=== PATIENT | female | born 1995 | race Caucasian/White ===

== ENCOUNTER 2017-09-11 09:04 | Emergency (ER) | payer OTHER ==
[2017-09-11] MEDS ORDERED: LORAZEPAM 1 MG TABLET ONE (10:02)
[2017-09-11] MEDS ORDERED: NA CHLORIDE 0.9% 0 ML ONE (10:02)
[2017-09-11 11:19] LABS: Absolute Lymphocytes (CBC) 1.9 K/uL (0.7-4.9); Absolute Monocytes 0.5 K/uL (0.1-1.3); Absolute Neutrophil 5.4 K/uL (1.8-8.0); Hematocrit 40.9 % (36.0-45.0); Lymphocytes % 23.9 % (15.3-44.8); MCH 28.4 pg (27.0-35.0); MCV 85.9 fL (80-100); MPV 7.5 fL (7.6-11.3); RBC Red Blood Cell Count 4.76 M/uL (3.86-4.86)
[2017-09-11 11:32] LABS: Bicarbonate 24 mEq/L (21-31); Glucose Level 86 mg/dL (65-120); Potassium 4.4 mEq/L (3.6-5.0); Sodium Level 135 mEq/L (135-145)
[2017-09-11 11:33] LABS: BUN Blood Urea Nitrogen 13 mg/dL (6-20)
--- NOTE | 2017-09-11 12:27 | ER ---
Nurse's Notes [facility] Name: Eden Meehan Age: 22 yrs Sex: Female : 1995 Arrival Date: 09/11/2017 Time: 09:11 Bed 19 Private MD: out of town, doctor Diagnosis: Palpitations;Shortness of breath Presentation: 09/11 09:40 Presenting complaint: Patient states: was recently started on Buspirone 7.5 BID on iw 09-08-17, started feeling palpitations and dizziness, chest tightness, was told by her psychiatrist to stop Buspirone, pt states she stopped yesterday but had another episode last night and wanted to make sure everything was ok. Transition of care: patient was not received from another setting of care. 09:40 Method Of Arrival: Ambulatory iw 09:40 Acuity: LOS 4 iw 10:41 Onset: The symptoms/episode began/occurred 1 week(s) ago. Anaphylaxis evaluation, no em signs or symptoms of anaphylaxis were noted. Onset of symptoms was September 04, 2017. Risk Assessment: Do you want to hurt yourself or someone else? Patient reports no desire to harm self or others. Initial Sepsis Screen: Does the patient meet any 2 criteria? No. Patient's initial sepsis screen is negative. Does the patient have a suspected source of infection? No. Patient's initial sepsis screen is negative. Care prior to arrival: None. 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 - Social history:: Smoking status: Patient/guardian denies using tobacco. - Ebola Screening: : Patient negative for fever greater than or equal to 101.5 degrees Fahrenheit, and additional compatible Ebola Virus Disease symptoms Patient denies exposure to infectious person Patient denies travel to an Ebola-affected area in the 21 days before illness onset No symptoms or risks identified at this time. Screenin:42 Abuse screen: Denies threats or abuse. Nutritional screening: No deficits noted. em Tuberculosis screening: No symptoms or risk factors identified. Fall Risk None identified. Assessment: 09:50 General: Appears in no apparent distress. uncomfortable, Behavior is cooperative, em anxious, Reports having started new medication that has made her feel SOB with palpitations, denies chest pain. Pain: Denies pain. Neuro: Level of Consciousness is awake, alert, obeys commands, Oriented to person, place, time, situation. Cardiovascular: Capillary refill < 3 seconds Patient's skin is warm and dry. Respiratory: Airway is patent Respiratory effort is even, unlabored, Breath sounds are clear bilaterally. Denies cough, pain with respiration. GI: Abdomen is round non-distended. : No signs and/or symptoms were reported regarding the genitourinary system. EENT: No signs and/or symptoms were reported regarding the EENT system. Derm: Skin is intact, Skin is pink, warm \T\ dry. Musculoskeletal: Range of motion: intact in all extremities. 11:00 Reassessment: Patient appears in no apparent distress at this time. Patient and/or em family updated on plan of care and expected duration. Pain level reassessed. Patient is alert, oriented x 3, equal unlabored respirations, skin warm/dry/pink. unsuccessful IV sticks, lab called. 12:00 Reassessment: Patient appears in no apparent distress at this time. Patient and/or em family updated on plan of care and expected duration. Pain level reassessed. Patient is alert, oriented x 3, equal unlabored respirations, skin warm/dry/pink. Patient states feeling better. Vital Signs: 09:47 BP 105 / 72; Pulse 101; Resp 18 S; Temp 98.2(TE); Pulse Ox 99% on R/A; Weight 111.13 iw kg; Height 5 ft. 6 in. (167.64 cm); Pain 0/10; 10:37 BP 126 / 81; Pulse 98; Resp 16; Pulse Ox 98% on R/A; Pain 0/10; em 11:30 BP 120 / 70; Pulse 87; Resp 16; Pulse Ox 100% on R/A; em 12:30 BP 111 / 57; Pulse 93; Resp 16; Pulse Ox 99% on R/A; Pain 0/10; em 09:47 Body Mass Index 39.54 (111.13 kg, 167.64 cm) iw ED Course: 09:11 Patient arrived in ED. mr 09:11 out of town, doctor is Private Physician. mr 09:34 [facility] snw 09:34 Franc Thakur MD is Attending Physician. snw 09:41 Keaton Dumont LVN is Primary Nurse. em 10:40 Patient has correct armband on for positive identification. Bed in low position. Call em light in reach. Side rails up X 1. 11:00 Missed attempt(s): 22 gauge in left antecubital area. Bleeding controlled, band aid em applied, catheter tip intact. 11:22 Arm band placed on. em 11:41 Triage completed. iw 12:50 No provider procedures requiring assistance completed. em 12:51 Patient did not have IV access during this emergency room visit. em Administered Medications: 10:10 Drug: Ativan 1 mg Route: PO; em 12:30 Follow up: Response: No adverse reaction; Marked relief of symptoms em 11:40 Not Given (Physician Discretion): NS 0.9% 1000 ml IV at 1 bolus Per protocol; 1000 mL iw bolus Outcome: 12:27 Discharge ordered by . snw 12:54 Patient left the ED. em Signatures: Rocío Shields FNP-C FNP-Hilda Manuel mr DumontKeaton, CHIEF METEOROLOGIST CHIEF METEOROLOGIST em Debo Sánchez, RN RN iw
--- NOTE | 2017-09-11 12:27 | EDPHYS ---
Physician Documentation [facility] Name: Eden Meehan Age: 22 yrs Sex: Female : 1995 Arrival Date: 09/11/2017 Time: 09:11 Bed 19 Private MD: out of town, doctor ED Physician Franc Thakur HPI: 09/11 09:51 This 22 yrs old Female presents to ER via Ambulatory with complaints of snw Palpitations, Dizziness. 09:51 The patient presents with chest pain, shortness of breath. Onset: The symptoms/episode snw began/occurred suddenly, last night. Associated signs and symptoms: Pertinent positives: The patient has no apparent associated signs or symptoms. Possible causes: buspar. The patient presents with a history of heart racing. 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 - Social history:: Smoking status: Patient/guardian denies using tobacco. - Ebola Screening: : Patient negative for fever greater than or equal to 101.5 degrees Fahrenheit, and additional compatible Ebola Virus Disease symptoms Patient denies exposure to infectious person Patient denies travel to an Ebola-affected area in the 21 days before illness onset No symptoms or risks identified at this time. ROS: 09:49 Constitutional: Negative for fever, chills, and weight loss, Eyes: Negative for injury, snw pain, redness, and discharge, ENT: Negative for injury, pain, and discharge, Neck: Negative for injury, pain, and swelling, Respiratory: Negative for shortness of breath, cough, wheezing, and pleuritic chest pain, Abdomen/GI: Negative for abdominal pain, nausea, vomiting, diarrhea, and constipation, Back: Negative for injury and pain, : Negative for injury, bleeding, discharge, and swelling, MS/Extremity: Negative for injury and deformity, Skin: Negative for injury, rash, and discoloration, Neuro: Negative for headache, weakness, numbness, tingling, and seizure. 09:49 Respiratory: Negative for shortness of breath, cough, wheezing, and pleuritic chest pain, feels like something is in her chest 09:49 Cardiovascular: Positive for chest pain. Exam: 09:49 Constitutional: This is a well developed, well nourished patient who is awake, alert, snw and in no acute distress. Head/Face: Normocephalic, atraumatic. Eyes: Pupils equal round and reactive to light, extra-ocular motions intact. Lids and lashes normal. Conjunctiva and sclera are non-icteric and not injected. Cornea within normal limits. Periorbital areas with no swelling, redness, or edema. ENT: Nares patent. No nasal discharge, no septal abnormalities noted. Tympanic membranes are normal and external auditory canals are clear. Oropharynx with no redness, swelling, or masses, exudates, or evidence of obstruction, uvula midline. Mucous membranes moist. Neck: Trachea midline, no thyromegaly or masses palpated, and no cervical lymphadenopathy. Supple, full range of motion without nuchal rigidity, or vertebral point tenderness. No Meningismus. Chest/axilla: Normal chest wall appearance and motion. Nontender with no deformity. No lesions are appreciated. 09:49 Abdomen/GI: Soft, non-tender, with normal bowel sounds. No distension or tympany. No guarding or rebound. No evidence of tenderness throughout. Back: No spinal tenderness. No costovertebral tenderness. Full range of motion. Skin: Warm, dry with normal turgor. Normal color with no rashes, no lesions, and no evidence of cellulitis. MS/ Extremity: Pulses equal, no cyanosis. Neurovascular intact. Full, normal range of motion. Neuro: Awake and alert, GCS 15, oriented to person, place, time, and situation. Cranial nerves II-XII grossly intact. Motor strength 5/5 in all extremities. Sensory grossly intact. Cerebellar exam normal. Normal gait. 09:49 Cardiovascular: Rate: tachycardic, Rhythm: regular, Heart sounds: normal. 09:49 Respiratory: the patient does not display signs of respiratory distress, Respirations: shallow respirations, that is mild, Breath sounds: are clear throughout. 09:49 Psych: Behavior/mood is anxious, mild. Vital Signs: 09:47 BP 105 / 72; Pulse 101; Resp 18 S; Temp 98.2(TE); Pulse Ox 99% on R/A; Weight 111.13 iw kg; Height 5 ft. 6 in. (167.64 cm); Pain 0/10; 10:37 BP 126 / 81; Pulse 98; Resp 16; Pulse Ox 98% on R/A; Pain 0/10; em 11:30 BP 120 / 70; Pulse 87; Resp 16; Pulse Ox 100% on R/A; em 12:30 BP 111 / 57; Pulse 93; Resp 16; Pulse Ox 99% on R/A; Pain 0/10; em 09:47 Body Mass Index 39.54 (111.13 kg, 167.64 cm) iw MDM: 09:35 Patient medically screened. snw 12:58 Data reviewed: vital signs, nurses notes. Data interpreted: Pulse oximetry: on room air snw is 99 %. Interpretation: normal. Counseling: I had a detailed discussion with the patient and/or guardian regarding: the historical points, exam findings, and any diagnostic results supporting the discharge/admit diagnosis, lab results, the need for outpatient follow up, to return to the emergency department if symptoms worsen or persist or if there are any questions or concerns that arise at home. Special discussion: Based on the patient's history, exam, and Dx evaluation, there is no indication for emergent intervention or inpatient Tx. It is understood by the patient/guardian that if the Sx's persist or worsen they need to return immediately for re-evaluation. Based on the history and exam findings, there is no indication for further emergent testing or inpatient evaluation. I discussed with the patient/guardian the need to see the primary care provider for further evaluation of the symptoms. I discussed with the patient/guardian the need to see the psychiatrist for further evaluation of the symptoms. 09/11 09:45 Order name: CBC with Diff snw 09/11 09:45 Order name: Chem 7 snw 09/11 09:45 Order name: DD snw 09/11 09:46 Order name: CBC with Automated Diff; Complete Time: 11:42 EDMS 09/11 09:46 Order name: Basic Metabolic Panel; Complete Time: 11:42 EDMS 09/11 09:46 Order name: D-Dimer; Complete Time: 12:09 EDMS Administered Medications: 10:10 Drug: Ativan 1 mg Route: PO; em 12:30 Follow up: Response: No adverse reaction; Marked relief of symptoms em 11:40 Not Given (Physician Discretion): NS 0.9% 1000 ml IV at 1 bolus Per protocol; 1000 mL iw bolus Disposition: 16:15 Co-signature as Attending Physician, Franc Thakur MD I agree with the assessment and kdr plan of care. Disposition: 09/11/17 12:27 Discharged to Home. Impression: Palpitations, Shortness of breath. - Condition is Stable. - Discharge Instructions: Allergies, Nonspecific Chest Pain, Drug Allergy, Palpitations. - Prescriptions for Benadryl 25 mg Oral Capsule - take 1 capsule by ORAL route every 6 hours As needed; 30 tablet. Pepcid 20 mg Oral Tablet - take 1 tablet by ORAL route once daily; 20 tablet. - Medication Reconciliation Form, Thank You Letter, Antibiotic Education, Prescription Opioid Use form. - Follow up: Private Physician; When: 2 - 3 days; Reason: Recheck today's complaints, Continuance of care, Re-evaluation by your physician. Follow up: Emergency Department; When: As needed; Reason: Trouble breathing, Worsening of condition. Signatures: Dispatcher [employer] [facility] Franc Thakur MD MD [facility] Rocío Shields, SQL REPORT WRITER-C SQL REPORT WRITER-[place] Keaton Dumont, FOLDED CLOTH TAPER FOLDED CLOTH TAPER em Debo Sánchez RN RN iw Corrections: (The following items were deleted from the chart) 12:54 12:27 09/11/2017 12:27 Discharged to Home. Impression: Palpitations; Shortness of em breath. Condition is Stable. Forms are Medication Reconciliation Form, Thank You Letter, Antibiotic Education, Prescription Opioid Use. Follow up: Private Physician; When: 2 - 3 days; Reason: Recheck today's complaints, Continuance of care, Re-evaluation by your physician. Follow up: Emergency Department; When: As needed; Reason: Trouble breathing, Worsening of condition. snw
== END 2017-09-11 12:54 | disposition home or self-care (01) ==
LOC: ER 09:04
DX: R06.02 Shortness of breath (principal); F41.9 Anxiety disorder, unspecified; F32.9 Major depressive disorder, single episode, unspecified
CPT/HCPCS: 36415; 80048; 85025; 85379; 99283; J7030

== ENCOUNTER 2017-09-11 16:36 | Emergency (ER) | payer OTHER ==
--- OUTSIDE RECORDS SUMMARY | 2017-09-11 16:38 | XMS REPORT | Summary of Care ---
:1995 Author Name KAMI STOUT M.D. Address Unavailable Unavailable , Care Team Providers Name Role Phone KAMI STOUT M.D. Unavailable Unavailable Unavailable Unavailable Unavailable Functional Status Name Dates Details Functional status health issues are not documented Status: Name Dates Details Cognitive status health issues are not documented Status: Problems Name Dates Details Complete tear of left rotator cuff (727.61, M75.122) Status: Active Medications Name Dates Details LORazepam 1 MG Oral Tablet Refills: 0 Active BuPROPion HCl ER (SR) 150 MG Oral Tablet Extended Release 12 Hour Refills: 0 Active Naproxen 500 MG Oral Tablet Refills: 0 Active Blisovi Fe 1.5/30 TABS Refills: 0 Active Allergies and Adverse Reactions Name Dates Details No Known Drug Allergies (Allergy) Status: Active Past Medical History Name Dates Details History of Depression (311, F32.9) Status: Resolved Procedures Procedure Dates Details History Of Prior Surgery Completed Immunization Name Dates Details Immunizations not documented Family History Name Dates Details Family history of High blood pressure (401.9, I10) Status: Active Social History Name Dates Details - Status: Name Dates Details Never smoker Vital Signs Date Test Result Details [id number] Height 67 in Status: Weight 248 lb Status: Body Mass Index Calculated 38.84 kg/m2 Status: Body Surface Area Calculated 2.22 m2 Status: Results Date Description Value Details Results not documented Plan of Care Name Dates Details Planned Observations Planned Goals not documented Planned Encounters Appointment; KAMI STOUT M.D. On: 17-Sep-2017 14:10 Interventions Provided Follow-ups/ReferralsPhysical Therapy Referral Ortho; Done: 13 Aug 2017Medications/Immunizations AdministeredMethylPREDNISolone Acetate 40 MG/ML Injection SuspensionPlanCompleted at Today's Appointment: Injection Patient Education/Instructions: Patient Education Provided Reassurance MRI report reviewed and finding discussed with patient and family. Patient/Parent to call or return with any abnormal changes Orders: Physical Therapy Follow Up: Return to the clinic in 6 weeks or as needed. Instructions Name Dates Details Instructions not documented Encounters Appointment; KAMI STOUT M.D. On: 13-Aug-2017 14:00 Encounter Diagnosis: Problem not documented
[2017-09-11] MEDS ORDERED: HYDRALAZINE HCL 10 MG TABLET ONE (18:54)
[2017-09-11] MEDS ORDERED: hydrOXYzine HCl 25 MG TAB ONE (19:46)
--- NOTE | 2017-09-11 20:26 | EDPHYS ---
Physician Documentation [facility] Name: Eden Meehan Age: 22 yrs Sex: Female : 1995 Arrival Date: 09/11/2017 Time: 16:39 Bed 25 Private MD: out of town, doctor ED Physician Christian Young HPI: 09/11 19:00 This 22 yrs old Female presents to ER via Ambulatory with complaints of pm1 Breathing Difficulty. 19:00 The patient has shortness of breath at rest. Onset: The symptoms/episode began/occurred.pm1 19:00 The patient's shortness of breath is aggravated by possibly BuSpar and or lack of pm1 Ativan for anxiety for the past 1 month. Associated signs and symptoms: Pertinent negatives: chest pain, non-productive cough, productive cough, fever, nausea, vomiting. Severity of symptoms: Pain is currently a 0 / 10. The patient has experienced similar episodes in the past, multiple times. The patient has been recently seen at the [facility] Emergency Department, today. Patient with onset of symptoms last night. Patient was seen here earlier today for the same complaint. Patient reports that the Ativan given earlier helped with her symptoms but her symptoms of shortness of breath returned after the Ativan's effect ran out. . 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 - Social history:: Smoking status: Patient/guardian denies using tobacco. - Ebola Screening: : Patient negative for fever greater than or equal to 101.5 degrees Fahrenheit, and additional compatible Ebola Virus Disease symptoms Patient denies exposure to infectious person. ROS: 19:00 Constitutional: Negative for fever, chills, and weight loss, Eyes: Negative for injury, pm1 pain, redness, and discharge, ENT: Negative for injury, pain, and discharge, Neck: Negative for injury, pain, and swelling, Cardiovascular: Negative for chest pain, palpitations, and edema, Abdomen/GI: Negative for abdominal pain, nausea, vomiting, diarrhea, and constipation. 19:00 Back: Negative for injury and pain, : Negative for injury, bleeding, discharge, and swelling, MS/Extremity: Negative for injury and deformity, Skin: Negative for injury, rash, and discoloration, Neuro: Negative for headache, weakness, numbness, tingling, and seizure. 19:00 Respiratory: Positive for shortness of breath, Negative for cough, sputum production, wheezing. Exam: 19:00 Constitutional: This is a well developed, well nourished patient who is awake, alert, pm1 and in no acute distress. Head/Face: Normocephalic, atraumatic. Eyes: Pupils equal round and reactive to light, extra-ocular motions intact. Lids and lashes normal. Conjunctiva and sclera are non-icteric and not injected. Cornea within normal limits. Periorbital areas with no swelling, redness, or edema. Neck: Trachea midline, no thyromegaly or masses palpated, and no cervical lymphadenopathy. Supple, full range of motion without nuchal rigidity, or vertebral point tenderness. No Meningismus. Chest/axilla: Normal chest wall appearance and motion. Nontender with no deformity. No lesions are appreciated. Cardiovascular: Regular rate and rhythm with a normal S1 and S2. No gallops, murmurs, or rubs. Normal PMI, no JVD. No pulse deficits. Respiratory: Lungs have equal breath sounds bilaterally, clear to auscultation and percussion. No rales, rhonchi or wheezes noted. No increased work of breathing, no retractions or nasal flaring. Abdomen/GI: Soft, non-tender, with normal bowel sounds. No distension or tympany. No guarding or rebound. No evidence of tenderness throughout. Back: No spinal tenderness. No costovertebral tenderness. Full range of motion. Skin: Warm, dry with normal turgor. Normal color with no rashes, no lesions, and no evidence of cellulitis. MS/ Extremity: Pulses equal, no cyanosis. Neurovascular intact. Full, normal range of motion. 19:00 Neuro: Orientation: is normal, Motor: is normal, moves all fours. Vital Signs: 16:46 BP 144 / 81; Pulse 134; Resp 22 S; Temp 97.7(O); Pulse Ox 100% on R/A; Weight 111.13 kg ae1 (R); Pain 4/10; 18:09 BP 150 / 130; Pulse 113; Resp 18; Pulse Ox 100% on R/A; tl3 20:21 BP 111 / 68; Pulse 99; Resp 18; Pulse Ox 98% on R/A; tl3 MDM: 18:32 Patient medically screened. pm1 20:25 Data reviewed: vital signs. Data interpreted: Pulse oximetry: on room air is 98 %. pm1 Interpretation: normal. Counseling: I had a detailed discussion with the patient and/or guardian regarding: the historical points, exam findings, and any diagnostic results supporting the discharge/admit diagnosis, the need for outpatient follow up, to return to the emergency department if symptoms worsen or persist or if there are any questions or concerns that arise at home. 20:28 ED course: Patient offered another dose of Ativan here in the ER patient refused. pm1 Patient reports that the Ativan from the prior visit today helped until its effect ran out. Patient was d/c from Ativan by her psychiatrist recently and started on BuSpar. Patient reports that the BuSpar did not work and felt like it was giving her palpitations. Patient only took two days of BuSpar. 09/11 18:32 Order name: EKG; Complete Time: 18:33 pm1 09/11 18:32 Order name: EKG - Nurse/Tech; Complete Time: 18:42 pm1 Administered Medications: 19:46 Drug: hydrOXYzine 50 mg Route: PO; tl3 20:22 Follow up: Response: No adverse reaction tl3 Disposition: 09/11/17 20:25 Discharged to Home. Impression: Palpitations. - Condition is Stable. - Discharge Instructions: Palpitations, Generalized Anxiety Disorder. - Prescriptions for Hydroxyzine HCl 25 mg Oral Tablet - take 1 tablet by ORAL route every 6 hours As needed; 30 tablet. - Medication Reconciliation Form, Thank You Letter form. - Follow up: Emergency Department; When: As needed; Reason: Worsening of condition. Follow up: Private Physician; When: 2 - 3 days; Reason: Recheck today's complaints, Continuance of care, Re-evaluation by your physician. - Problem is new. - Symptoms have improved. Addendum: 09/20/2017 11:50 Co-signature as Attending Physician, Christian Young MD Available for consultation at p s1 all times. . Signatures: Trevin Hurley, WEB CONTENT SPECIALIST WEB CONTENT SPECIALIST pm1 Colton Sosa, RN RN ae1 Christian Young MD MD ps1 Do Willard, RN RN tl3 Corrections: (The following items were deleted from the chart) 09/11 20:26 20:25 09/11/2017 20:25 Discharged to Home. Impression: Anxiety disorder, unspecified. pm1 Condition is Stable. Forms are Medication Reconciliation Form, Thank You Letter, Antibiotic Education, Prescription Opioid Use. Follow up: Emergency Department; When: As needed; Reason: Worsening of condition. Follow up: Private Physician; When: 2 - 3 days; Reason: Recheck today's complaints, Continuance of care, Re-evaluation by your physician. Problem is new. Symptoms have improved. pm1 20:32 20:26 09/11/2017 20:25 Discharged to Home. Impression: Palpitations. Condition is tl3 Stable. Forms are Medication Reconciliation Form, Thank You Letter, Antibiotic Education, Prescription Opioid Use. Follow up: Emergency Department; When: As needed; Reason: Worsening of condition. Follow up: Private Physician; When: 2 - 3 days; Reason: Recheck today's complaints, Continuance of care, Re-evaluation by your physician. Problem is new. Symptoms have improved. pm1
--- NOTE | 2017-09-11 20:26 | ER ---
Nurse's Notes [facility] Name: Eden Meehan Age: 22 yrs Sex: Female : 1995 Arrival Date: 09/11/2017 Time: 16:39 Bed 25 Private MD: out of town, doctor Diagnosis: Palpitations Presentation: 09/11 16:48 Presenting complaint: Patient states: Patient states she was seen here earlier today ae1 for "palpitations", was discharged and is now having "chest pressure and difficulty breathing. Transition of care: patient was not received from another setting of care. Onset of symptoms was September 11, 2017. Risk Assessment: Do you want to hurt yourself or someone else? Patient reports no desire to harm self or others. Initial Sepsis Screen: Does the patient meet any 2 criteria? RR > 20 per min. HR > 90 bpm. 16:48 Method Of Arrival: Ambulatory ae1 16:48 Acuity: LOS 3 ae1 20:32 Initial Sepsis Screen: Does the patient have a suspected source of infection? No. tl3 Patient's initial sepsis screen is negative. Care prior to arrival: None. Triage Assessment: 16:51 General: Appears uncomfortable, Behavior is cooperative, anxious. Pain: Complains of ae1 pain in anterior aspect of left upper chest and left breast. Neuro: Level of Consciousness is awake, alert, obeys commands, Oriented to person, place, time, situation. Respiratory: Reports shortness of breath at rest Breath sounds are clear bilaterally. Onset: The symptoms/episode began/occurred gradually, the patient has mild shortness of breath. 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 - Social history:: Smoking status: Patient/guardian denies using tobacco. - Ebola Screening: : Patient negative for fever greater than or equal to 101.5 degrees Fahrenheit, and additional compatible Ebola Virus Disease symptoms Patient denies exposure to infectious person. Screenin:50 Abuse screen: Denies threats or abuse. Nutritional screening: No deficits noted. ae1 Tuberculosis screening: No symptoms or risk factors identified. Fall Risk None identified. Assessment: 18:09 General: Appears distressed, obese, well developed, well nourished, Behavior is tl3 cooperative, appropriate for age, anxious. Pain: Denies pain. Neuro: Level of Consciousness is awake, alert, obeys commands, Oriented to person, place, time, situation, Appropriate for age. Cardiovascular: No deficits noted. Denies chest pain, Rhythm is regular. Respiratory: Airway is patent Respiratory effort is even, unlabored, Respiratory pattern is regular, symmetrical. GI: No signs and/or symptoms were reported involving the gastrointestinal system. : No signs and/or symptoms were reported regarding the genitourinary system. EENT: No signs and/or symptoms were reported regarding the EENT system. Derm: No signs and/or symptoms reported regarding the dermatologic system. Musculoskeletal: No signs and/or symptoms reported regarding the musculoskeletal system. 18:09 Reassessment: pt was seen here earlier today for adverse reaction to new anxiety psych tl3 med, is feeling like she cant breath, RR even, O2 sat 100% on room air. 20:21 Reassessment: Patient appears in no apparent distress at this time. No changes from tl3 previously documented assessment. Patient and/or family updated on plan of care and expected duration. Pain level reassessed. Patient is alert, oriented x 3, equal unlabored respirations, skin warm/dry/pink. yusuf at bedside discussing POC. Vital Signs: 16:46 BP 144 / 81; Pulse 134; Resp 22 S; Temp 97.7(O); Pulse Ox 100% on R/A; Weight 111.13 kg ae1 (R); Pain 4/10; 18:09 BP 150 / 130; Pulse 113; Resp 18; Pulse Ox 100% on R/A; tl3 20:21 BP 111 / 68; Pulse 99; Resp 18; Pulse Ox 98% on R/A; tl3 ED Course: 16:39 Patient arrived in ED. mr 16:39 out of town, doctor is Private Physician. mr 16:50 Triage completed. ae1 16:51 Arm band placed on left wrist. ae1 17:59 Do Willard, [place] is Primary Nurse. tl3 18:00 Yusuf Hurley NP is PHCP. pm1 18:00 hCristian Young MD is Attending Physician. pm1 18:09 Patient has correct armband on for positive identification. Bed in low position. Call tl3 light in reach. Side rails up X 1. Pulse ox on. NIBP on. 18:09 No provider procedures requiring assistance completed. tl3 20:31 Patient did not have IV access during this emergency room visit. tl3 Administered Medications: 19:46 Drug: hydrOXYzine 50 mg Route: PO; tl3 20:22 Follow up: Response: No adverse reaction tl3 Outcome: 20:25 Discharge ordered by . pm1 20:31 Discharged to tl3 20:31 Discharged to home ambulatory. 20:31 Condition: stable 20:31 Discharge instructions given to patient, Instructed on discharge instructions, follow up and referral plans. medication usage, Demonstrated understanding of instructions, follow-up care, medications, Prescriptions given X 1. 20:32 Patient left the ED. tl3 Signatures: Hilda Goldsmith Patrick, NP MOLD TECHNICIAN pm1 Colton Sosa, RN RN ae1 Do Willard RN RN tl3
--- NOTE | 2017-09-12 11:20 | EKG ---
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
== END 2017-09-11 20:32 | disposition home or self-care (01) ==
LOC: ER 16:36
DX: R00.2 Palpitations (principal); F41.9 Anxiety disorder, unspecified; F32.9 Major depressive disorder, single episode, unspecified; Z88.8 Allergy status to other drugs, medicaments and biological substances
CPT/HCPCS: 93005; 99283